=== PATIENT | female | born 1970 | race Caucasian/White ===

== ENCOUNTER 2023-01-29 05:23 | Inpatient (IN) | payer OTHER ==
[~2023-01-29] VITALS: Ht 154.9 cm; Wt 77.1 kg
[~2023-01-29 05:23] MED LIST: CENTRUM ADULT120 MCG PO; OMEGA 3 1,0001 EACH PO; RELAFE PO; ZEGERID 40 MG1 EACH PO
[2023-01-29] MEDS ORDERED: NABUMETONE750 MG (08:10)
[2023-01-29] MEDS ORDERED: OMEPRAZOLE40 MG (08:10)
[2023-01-29] MEDS ORDERED: VITAMIN C100 MG (08:12)
[2023-01-29] MEDS ORDERED: OMEGA-31000 MG (08:12)
[2023-01-29] MEDS ORDERED: VITAMIN D310 MC4 (08:12)
[2023-01-29] MEDS ORDERED: CENTRUM ADULTS1 EACH (08:13)
[2023-01-29] MEDS ORDERED: FLORAVANCE CAP1 EACH (08:13)
[2023-01-31] MEDS ORDERED: GABAPENTIN300 MG PO (07:02)
[2023-01-31] MEDS ORDERED: IBUPROFEN800 MG PO (07:02)
[2023-01-31] MEDS ORDERED: SIMETHICONE125 M1 PO (07:02)
[2023-01-31] MEDS ORDERED: POLY119PG PO (07:02)
== END 2023-01-31 09:25 | disposition home or self-care (01) | DRG 743 ==
LOC: SURH → O/R 05:23 → OB/GYN 05:23 → SURH 08:06 → SURG 08:30 → OB/GYN 10:06
PROVIDERS: ADMIT Obstetrics & Gynecology; ATTEND Obstetrics & Gynecology
PROC: 0UT00ZZ Resection of Right Ovary, Open Approach (ICD-10-PCS; 2023-01-29)
PROC: 0UT90ZZ Resection of Uterus, Open Approach (ICD-10-PCS; principal; 2023-01-29 08:30)
DX: D25.1 Intramural leiomyoma of uterus (principal); N72 Inflammatory disease of cervix uteri; Z20.822 Contact with and (suspected) exposure to COVID-19; D27.0 Benign neoplasm of right ovary